=== PATIENT | male | born 1955 | race Hispanic/Latino ===

== ENCOUNTER 2018-04-02 11:08 | Outpatient (CLI) | payer OTHER | END 2018-04-02 11:09 | disposition home or self-care (01) | LOC: BICRAD 11:08 | PROVIDERS: ATTEND Family Medicine | DX: R91.8 Other nonspecific abnormal finding of lung field (principal); R07.9 Chest pain, unspecified | CPT/HCPCS: 71046 ==

== ENCOUNTER 2018-10-19 09:05 | Outpatient (CLI) | payer OTHER ==
--- NOTE | 2018-10-19 12:19 | RAD ---
TWO VIEWS CHEST: DATE: 10/19/2018. PROVIDED CLINICAL HISTORY: Chest pain. FINDINGS: Comparison 04/02/2018. Cardiac and mediastinal silhouette are unchanged in appearance. No focal cons olidation, pleural fluid, or pneumothorax apparent. IMPRESSION: No evidence for an acute cardiopulmonary process. POS: [facility]
--- NOTE | 2018-10-19 12:20 | RAD ---
THORACIC SPINE RADIOGRAPHS THREE VIEWS: 10/19/2018 PROVIDED CLINICAL HISTORY: Back pain. FINDINGS: Thoracic alignment appears normal. Vertebral body heights appear preserved. Pedicles appear intact. Mild disk degenerative changes are seen. IMPRESSION: Mild thoracic disk degenerative change. POS: [facility]
--- NOTE | 2018-10-19 12:20 | RAD ---
CERVICAL SPINE RADIOGRAPHS 3 VIEWS: DATE: 10/19/2018. PROVIDED CLINICAL HISTORY: Cervicalgia. FINDINGS: Cervical alignment appears normal. Vertebral body heights appear preserved. Disk space narrowing at C3-4 and C5-6 with associated end plate degenerative change. Multilevel facet arthritis. No eviden ce for a fracture. No prevertebral soft tissue swelling apparent. The visualized lung apices appear clear. IMPRESSION: Cervical degenerative change. POS: [facility]
== END 2018-10-19 09:06 | disposition home or self-care (01) ==
LOC: BICRAD 09:05
PROVIDERS: ATTEND Family Medicine
DX: M54.2 Cervicalgia (principal); R07.89 Other chest pain; M47.812 Spondylosis without myelopathy or radiculopathy, cervical region; M47.814 Spondylosis without myelopathy or radiculopathy, thoracic region
CPT/HCPCS: 71046; 72040; 72072

== ENCOUNTER 2019-02-05 09:51 | Outpatient (CLI) | payer OTHER ==
--- NOTE | 2019-02-05 11:15 | RAD ---
3 views of the sacrum/coccyx: 02/05/2019 COMPARISON: None HISTORY: Pain FINDINGS: Curvilinear metallic density overlies right lower quadrant, as seen on a CT examination per formed 08/29/2014, suggesting a retained surgical sponge. Rim calcified structures overlie the pelvis which appear to represent rim calcified sigmoid diverticula when compared to a prior CT examin ation. No widening of the sacroiliac joints or the pubic symphysis. No acute fracture or dislocation. IMPRESSION: Incidental findings as detailed above. No acute osseous abnormality.
--- NOTE | 2019-02-05 11:47 | RAD ---
AP PELVIS: 02/05/19 HISTORY: Pelvic pain. COMPARISON: 08/19/14 CT examination. The pelvic ring is intact without evidence of fracture. There is minimal arthritic changes of the hip s and some mild arthritic changes of the lower lumbar spine. Density in the right lower quadrant with associated linear metallic density is very suspicious for re tained sponge. It is seen on the prior 2013 study. Round calcifications in the pelvis direct adjacent to the bladder are also again noted. These findings appear stable. IMPRESSION: No acute changes. POS: [facility]
== END 2019-02-05 09:52 | disposition home or self-care (01) ==
LOC: BICRAD 09:51
PROVIDERS: ATTEND Family Medicine
DX: M54.5 Low back pain (principal); M53.3 Sacrococcygeal disorders, not elsewhere classified
CPT/HCPCS: 72170; 72220

== ENCOUNTER 2019-08-29 08:04 | Outpatient (CLI) | payer OTHER ==
--- NOTE | 2019-08-29 10:44 | CT ---
CT ABDOMEN AND PELVIS WITH ORAL AND IV CONTRAST: Date: 08/29/19 HISTORY: 64-year-old male with lower abdominal pain, IBS, diarrhea. COMPARISON: 08/29/14. FINDINGS: The lung bases are clear. The patient is post cholecystectomy. The liver, spleen, pancreas, adrenal g lands, and kidneys are normal. No free air, free fluid, or lymphadenopathy seen in the abdomen or pel vis. The prostate is enlarged. The small bowel loops are not abnormally dilated. There is mild sigmoid diverticulosis. Peripherally calcified nodules adjacent to the anterior aspect of the bladder on the right are again seen. The patient is post appendectomy. The heterogeneous mass with linear metallic densities and calcifica tions in the right lower quadrant mesentery abutting the cecum is stable, measuring 4.2 x 4.7 x 4.8 c m. There are vascular calcifications without evidence of aneurysmal dilatation of the abdominal aorta. T here are degenerative changes in the spine. IMPRESSION: 1. 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 2. Sigmoid diverticulosis. POS: [facility]
== END 2019-08-29 08:05 | disposition home or self-care (01) ==
LOC: BICCT 08:04
PROVIDERS: ATTEND Physician Assistant Medical
DX: R10.30 Lower abdominal pain, unspecified (principal); K58.0 Irritable bowel syndrome with diarrhea; K57.30 Diverticulosis of large intestine without perforation or abscess without bleeding
CPT/HCPCS: 74177; 82565

== ENCOUNTER 2020-06-09 11:04 | Outpatient (CLI) | payer MEDICARE ==
--- NOTE | 2020-06-09 11:32 | RAD ---
EXAM: XR Cerv Sp Ap Lat STANDARD PROVIDED CLINICAL HISTORY: Cervicalgia COMPARISON: 10/19/2018 FINDINGS: C1 to the C6-7 level is seen on the lateral view. Majority of the C7 vertebral body as well as cervic othoracic junction are obscured and not evaluated. Mild degenerative changes are again seen at the C5-6 level with osteophytes seen anteriorly and mild narrowing of the intervertebral disc space. Vert ebral body heights are within normal limits. No fracture or subluxation is seen from C1 to C6-7 level. There is straightening of the normal cervical lordotic curvature which may be related to muscl e spasm or positioning. Prevertebral soft tissues are within normal limits. Mild facet degenerative changes are seen. IMPRESSION: 1. Nonvisualization of the majority of the C7 vertebral body and cervicothoracic junction. Fracture o r subluxation at this level could not be excluded. 2. Stable mild degenerative changes in the cervical spine similar to study in 2019.
--- NOTE | 2020-06-09 14:11 | RAD ---
TWO VIEW CHEST: 06/09/20 INDICATIONS: Chest pain. Dorsalgia. COMPARISON: 10/19/18. Lung porras appear clear. No infiltrate. Heart and mediastinum unremarkable and stable. Vasculature appears normal and stable. Osseous structures unremarkable. IMPRESSION: No acute process. No interval change. POS: [facility]
== END 2020-06-09 11:05 | disposition home or self-care (01) ==
LOC: BICRAD 11:04
PROVIDERS: ATTEND Family Medicine
DX: M54.2 Cervicalgia (principal); M47.812 Spondylosis without myelopathy or radiculopathy, cervical region
CPT/HCPCS: 71046; 72040

== ENCOUNTER 2022-05-27 12:35 | Outpatient (CLI) | payer MEDICARE | END 2022-05-27 12:36 | disposition home or self-care (01) | LOC: BICRAD 12:35 | PROVIDERS: ATTEND Family Medicine | DX: R07.9 Chest pain, unspecified (principal) | CPT/HCPCS: 71045 ==

== ENCOUNTER 2023-10-17 12:08 | Emergency (ER) | payer MEDICARE ==
[2023-10-17] MEDS ORDERED: Lidocaine 1% w/Epinephrine 1:100K 20 ML VIAL ONE (12:52)
== END 2023-10-17 13:50 | disposition home or self-care (01) ==
LOC: ERS 12:08
DX: S01.511A Laceration without foreign body of lip, initial encounter (principal); I10 Essential (primary) hypertension; W26.8XXA Contact with other sharp object(s), not elsewhere classified, initial encounter
CPT/HCPCS: 12011; 99282

== ENCOUNTER 2023-10-27 09:12 | Outpatient (CLI) | payer MEDICARE | END 2023-10-27 09:13 | disposition home or self-care (01) | LOC: BICRAD 09:12 | PROVIDERS: ATTEND Internal Medicine Rheumatology | DX: M25.512 Pain in left shoulder (principal); M19.012 Primary osteoarthritis, left shoulder; M85.812 Other specified disorders of bone density and structure, left shoulder ==

== ENCOUNTER 2024-05-01 07:24 | Outpatient (CLI) | payer MEDICARE | END 2024-05-01 07:25 | disposition home or self-care (01) | LOC: BICMRI 07:24 | PROVIDERS: ATTEND Physical Therapist | DX: M25.512 Pain in left shoulder (principal); M75.122 Complete rotator cuff tear or rupture of left shoulder, not specified as traumatic; M62.512 Muscle wasting and atrophy, not elsewhere classified, left shoulder; M19.012 Primary osteoarthritis, left shoulder; R93.7 Abnormal findings on diagnostic imaging of other parts of musculoskeletal system ==

== ENCOUNTER 2025-08-20 13:08 | Outpatient (CLI) | payer MEDICARE | END 2025-08-20 13:09 | disposition home or self-care (01) | LOC: BICRAD 13:08 | PROVIDERS: ATTEND Family Medicine | DX: S67.191A Crushing injury of left index finger, initial encounter (principal); S60.222A Contusion of left hand, initial encounter; M79.89 Other specified soft tissue disorders ==